=== PATIENT | male | born 1995 | race African-American/Black ===

== ENCOUNTER 2018-12-09 00:41 | Emergency (ER) | payer BC ==
[~2018-12-09] VITALS: Ht 185.4 cm; Wt 73.5 kg
[2018-12-09 00:46] VITALS: Ht 185.4 cm; Wt 73.5 kg
[2018-12-09 02:38] VITALS: BP 122/70
== END 2018-12-09 02:38 | disposition home or self-care (01) ==
LOC: ED 00:41
DX: K22.4 Dyskinesia of esophagus (principal); Z91.010 Allergy to peanuts; Z91.013 Allergy to seafood